=== PATIENT | female | born 1930 | race Caucasian/White ===

== ENCOUNTER 2016-11-12 19:06 | Inpatient (IN) | payer MEDICARE, BC ==
[~2016-11-12] VITALS: Ht 160 cm; Wt 90.7 kg
--- NOTE | ~2016-11-12 | EKG ---
PATIENT: PETERSON WELLS UNIT #: [id number] Ventricular Rate: 85 BPM Atrial Rate: 85 BPM P-R Interval: 144 ms QRS Duration: 100 ms Q-T Interval: 360 ms QTC Calculation(Bezet): 428 ms P Merrillan: 44 degrees Calculated R Merrillan: 44 degrees Calculated T Merrillan: 56 degrees Diagnosis Line: Normal sinus rhythm Diagnosis Line: Normal ECG Diagnosis Line: When compared with ECG of 15-OCT-2015 07:44, Diagnosis Line: Borderline criteria for Inferior infarct are no Diagnosis Line: longer Present Diagnosis Line: Nonspecific T wave abnormality no longer evident Diagnosis Line: in Inferior leads Diagnosis Line: Nonspecific T wave abnormality no longer evident Diagnosis Line: in Anterior leads Diagnosis Line: QT has shortened Diagnosis Line: Confirmed by DANNY SIMS MD ([id number]) on 11/13/2016 Diagnosis Line: 4:53:19 PM INTERPRETING MD: LEVI NATARAJAN
--- NOTE | ~2016-11-12 | CO ---
Unit #: [id number] #: [id number] Patient: PETERSON WELLS [id number] [address] [place], [place] [address] [id number] Hal MR#: [id number] NAME: PETERSON WELLS ROOM: 464 Age: 86 Sex: F Admission Date: 11/13/2016 : 1930 Attending Physician: Anisha Jacobs M.D. Primary Care Physician: John Bell M.D. Consultation Date: 11/13/2016 CONSULTATION REPORT PRIMARY CARE PHYSICIAN John Bell M.D. REASON FOR CONSULTATION Recurrent C diff colitis. HISTORY OF PRESENT ILLNESS Ms. Wells is an 86-year-old white female. I have not seen her for several months. In fact, she called my office few days ago and I spoke with her directly over the phone. She told me that she went to the [facility] and that she had lot of diarrhea and that she was sent home. Next day, she was called from [place] [facility] that she was found to have C diff colitis on the stool study and she was prescribed Flagyl. Apparently, the patient had rash with Flagyl and hives and ended up going to the emergency room again. She was then given a prescription for vancomycin, but because it was very expensive more than 1500 to 1600 dollars, she could not afford it and therefore, she continues to suffer. From our office, we called her, compounding vancomycin which would have cost it 150 to 200 dollars for 14 days. The patient however states she did not have any money even to buy that and thus ended up coming to the emergency room with profuse watery diarrhea and feeling unwell. She also has some abdominal cramps. She also was found to have a left lower lobe infiltrate in the emergency room during this hospitalization. PAST MEDICAL HISTORY Significant history of type 2 diabetes, hypertension, hyperlipidemia, hypothyroidism, anxiety and depression, B12 deficiency, chronic kidney disease, and valvular heart disease as well as C diff colitis. PAST SURGICAL HISTORY Included hysterectomy, cholecystectomy, bilateral hip surgeries, back surgery, cataract extraction, hemorrhoidectomy, right knee replacement. MEDICATIONS At home included aspirin, Xanax, Norvasc, ferrous sulfate, Florastor, Amaryl, Imdur, Lantus insulin, Synthroid, lovastatin, metoprolol, nortriptyline, omeprazole, Percocet, and Zofran. ALLERGIES She is allergic to codeine, Flagyl, morphine. FAMILY HISTORY None of colon, pancreatic cancer, or liver disease, but she says the mother's colon "ruptured." Unit #: [id number] #: [id number] Patient: PETERSON WELLS SOCIAL HISTORY Lives at home by herself. Never smoked. Does not drink alcohol. REVIEW OF SYSTEMS Detailed review of organ systems is significant for diarrhea and abdominal discomfort. There is no history of fever, chills, or rigors. No history of headache, seizures, chest pain, or syncope. No history of cough, expectoration, or hemoptysis. No history of dysuria, hematuria, or pyuria. No history of focal seizures or extremity weakness. Rest of the review of organ systems is unremarkable. PHYSICAL EXAMINATION GENERAL: She is awake, alert, oriented, and is already feeling better while in the hospital. VITAL SIGNS: Her temperature is 98.0, pulse is 84 per minute and regular, respirations 20, and blood pressure 135/55. She weighs 199 pounds, which is close to her baseline weight. HEENT: She has mild pallor. There being no icterus, lymphadenopathy, or peripheral edema. CARDIOVASCULAR: Normal heart sounds. No murmurs. LUNGS: Auscultation over the lungs reveals normal breath sounds. Good air entry. ABDOMEN: Soft and nontender. Liver and spleen not palpable. Bowel sounds normal. DIAGNOSTIC STUDIES LABORATORY RESULTS: Shows a completely unremarkable CBC. Serum chemistry shows a BUN and creatinine of 29 and 1.3. Blood glucose 240. Sodium is 131, potassium 4.9, and albumin is 3.3, and LFTs otherwise normal. Her C diff toxin here is pending. CLINICAL IMPRESSION The patient most likely has reactivation recurrent clostridium difficile colitis and in view of the fact that she is allergic to Flagyl, oral vancomycin is an ideal choice and is only option here. The patient will require to purchase medication in the compounding pharmacy, so as to avoid excessive cost. We will also do a limited flexible sigmoidoscopy to assess the severity of disease. The above plan discussed with the patient, she was reassured. Thank you very much for asking me to see this pleasant woman. I appreciate the consult. Dictated by... Franklyn Leal/ruddy TD: 11/14/2016 12:06 JOB #: [id number] CC: Franklyn Decker M.D. Unit #: [id number] #: [id number] Patient: PETERSON WELLS CONSULTATION REPORT Page 1 of 1 X Nando Perez MD CONSULTATION REPORT
--- NOTE | ~2016-11-12 | HP ---
Unit #: [id number] #: [id number] Patient: PETERSON WELLS [id number] [address] [address] [id number] I MR#: [id number] NAME: PETERSON WELLS ROOM: 464 Age: 86 Sex: F Admission Date: 11/13/2016 : 1930 Attending Physician: Analia Valdivia M.D. Primary Care Physician: John Bell M.D. HISTORY AND PHYSICAL CHIEF COMPLAINT Recurrent C. difficile colitis, allergic reaction secondary to Flagyl with hives. HISTORY This 86-year-old female with hypertension, valvular heart disease, AODM, is admitted for C. difficile colitis. The patient was admitted to this facility 05/12/2016 for C. difficile colitis. Afterwards, went to rehab. States that she was well since her discharge from rehab in June until last week. Last week she again developed diarrhea with abdominal discomfort. No fevers, sweats or chills. She was seen at [place] emergency department on 11/06/2016, cultures were taken. The patient was called that the cultures were positive for C. difficile. The patient is allergic to Flagyl, and, therefore, vancomycin was called in. Unfortunately, the vancomycin was too expensive to purchase. Therefore, the patient opted to take Flagyl with Benadryl. However, after three doses of Flagyl, she developed hives. Despite 100 mg of Benadryl, still had hives when she presented to this emergency department last evening. The hives were resolving. She was, however, given 125 mg of Solu-Medrol. Was also given Protonix and Zofran. On examination, she has periumbilical tenderness. Her urinalysis is negative. Chest x-ray shows a new left lower lobe infiltrate but patient denies cough or shortness of breath. She is afebrile with a normal white count. PAST MEDICAL HISTORY 1. C. difficile colitis. 2. Valvular heart disease with an ejection fraction of 50-55%, moderate severe MR, mild to moderate TR. 3. Essential hypertension. 4. Chronic kidney disease. 5. AODM. 6. Hyperlipidemia. 7. Chronic back pain and DJD. 8. Anxiety and depression. 9. B12 deficiency. 10. Hypothyroidism. 11. Diverticular disease. Colonoscopy in the past five years only revealed diverticular disease. 12. Hysterectomy. 13. Cholecystectomy. 14. Bilateral hip surgeries. Unit #: [id number] #: [id number] Patient: PETERSON WELLS 15. Back surgery. 16. Cataract extraction. 17. Hemorrhoidectomy. 18. Right knee replacement. 19. Laparoscopic ventral hernia repair 09/2015 for a partial small bowel obstruction. ALLERGIES Morphine, codeine and Flagyl. HOME MEDICATIONS 1. Aspirin 81 mg daily. 2. Xanax 0.25 mg t.i.d. 3. Norvasc 5 mg daily. 4. Iron sulfate 324 mg b.i.d. 5. Florastor 250 mg b.i.d. which I believe the patient completed. 6. Amaryl 8 mg q. a.m. 7. Imdur 30 mg daily. 8. Lantus 30 units subcu q. h.s. 9. Synthroid 0.1 mg daily. 10. Lovastatin 40 mg daily. 11. Metoprolol 50 mg b.i.d. 12. Nortriptyline 75 mg daily. 13. Omeprazole 40 mg daily. 14. P.r.n. Zofran. 15. Percocet 10 mg q.4 hours as needed. FAMILY HISTORY Mother's colon "ruptured." SOCIAL HISTORY The patient lives alone. She is a lifelong nonsmoker, she does not drink alcohol. REVIEW OF SYSTEMS Notable for diarrhea, abdominal discomfort, hypertension, valvular heart disease, AODM, hyperlipidemia, chronic back pain, hypothyroidism, B12 deficiency, above mentioned surgeries. All other systems were reviewed and otherwise negative. Also, hives. PHYSICAL EXAMINATION GENERAL: Pleasant 86-year-old female who currently is in no acute distress. VITAL SIGNS: Temperature 98.4, pulse 87, respirations 19, blood pressure 117/65. O2 saturation is 94% on room air. HEENT: Eyes PERRLA. Extraocular muscles are intact. Pharynx is benign. NECK: Supple without adenopathy or thyromegaly. CHEST: Clear. CARDIAC: Normal S1 and S2, I actually do not hear a murmur. ABDOMEN: Bowel sounds are present. Periumbilical tenderness noted without rebound, guarding. No hepatosplenomegaly or masses. EXTREMITIES: With minimal edema. NEUROLOGIC EXAM: The patient is awake, alert, oriented. Cranial nerves are intact. Equal strength throughout but generally weak on exam. DIAGNOSTIC STUDIES LABORATORY: Hematocrit is 38.2, normal white count and platelet count. Unit #: [id number] #: [id number] Patient: PETERSON WELLS-7 - glucose 154, BUN 29, creatinine 1.3. BNP is normal. Cardiac markers negative. Urinalysis - trace leukocyte esterase without significant white or red cells on catheterized specimen. IMAGING: Chest x-ray - new left lower lobe infiltrate. CARDIOVASCULAR: EKG - sinus rhythm, rate 85, normal appearing. ASSESSMENT 1. Recurrent C. difficile colitis seen at [facility] six days ago. Patient had an allergic reaction to Flagyl but is unable to afford p.o. vancomycin. 2. Allergic reaction to Flagyl. 3. Valvular heart disease with ejection fraction 50-55%. 4. Essential hypertension. 5. Chronic kidney disease and mild dehydration. 6. AODM. 7. Chronic back pain. 8. Anxiety and depression. 9. Hypothyroidism. 10. Left lung infiltrate but no shortness of breath or cough. PLANS 1. P.o. vancomycin. 2. Hives, resolved after Benadryl and one dose of Solu-Medrol. Will not continue Solu-Medrol at this point as patient is diabetic. 3. IV fluids. 4. Social work to see as patient is unable to afford vancomycin. 5. SCDs for DVT prophylaxis. 6. Clear liquid diet and adjust IV fluids and diabetic medications accordingly. Dictated by Franklyn Mccain/lesley TD: 11/13/2016 05:45 JOB #: [id number] HISTORY AND PHYSICAL Page 1 of 1 X Analia Valdivia MD X HISTORY AND PHYSICAL
--- NOTE | ~2016-11-12 | OR ---
Unit #: [id number] #: [id number] Patient: PETERSON WELLS [id number] [facility]. [place], [place] [address] [id number] I MR#: [id number] NAME: PETERSON WELLS ROOM: 464 Date of Procedure: 11/13/2016 Admission Date: 11/13/2016 Surgeon: Nando Perez M.D. : 1930 Attending Physician: Anisha Jacobs M.D. Primary Care Physician: John Bell M.D. OPERATIVE REPORT PRIMARY CARE PHYSICIAN John Bell M.D. PREOPERATIVE DIAGNOSIS Recurrent Clostridium difficile colitis. PROCEDURE PERFORMED Flexible sigmoidoscopy and biopsies. POSTOPERATIVE DIAGNOSES The patient had changes suggestive of resolving pseudomembranous colitis involving the sigmoid colon. In addition, scant diverticula were also seen in this area. RECOMMENDATIONS The patient is allergic to metronidazole; therefore, vancomycin is the only option. She was called oral vancomycin by our office when she called our office few days ago that she did have C. diff colitis. This was initially picked up at [facility], but she was never treated there. Unfortunately, she could not even afford the compounded pharmacy vancomycin which cost about 150 to 200 dollars and thus ended up coming to the emergency room. Unfortunately, there is little else that can be offered other than oral vancomycin. The cheapest way to obtain is by compounded pharmacy prescription. The patient needs to take this in a dose of 125 mg p.o. q.i.d. for 14 days. She can be discharged home from a GI standpoint. SEDATION USED MAC. DESCRIPTION OF PROCEDURE Following detailed explanation of potential risks and complications of a sigmoidoscopy, namely perforation, bleeding, and complications related to sedation, the patient was brought to GI lab and laid in the left lateral decubitus position. A digital rectal examination was performed, which was normal. Lubricated tip of the Olympus video colonoscope was inserted through the anus and advanced under direct vision. The scope was advanced past rectum into the sigmoid colon. Changes of pseudomembranous colitis were noted with lots of whitish exudates and secretions. The scope was advanced up to proximal sigmoid with continuous changes seen throughout. Appropriate biopsies were obtained and the scope was withdrawn. The patient returned to the recovery area. She also had few diverticula in Unit #: [id number] #: [id number] Patient: SHARP,PETERSON the sigmoid colon. She tolerated the procedure without any postprocedure complications. Dictated by..Franklyn Anton/ruddy TD: 11/13/2016 21:59 JOB #: [id number] CC: Franklyn Mccain M.D. OPERATIVE REPORT Page 1 of 1 X Nando Perez MD X PROCEDURE OPERATIVE NOTE
--- NOTE | ~2016-11-12 | DS ---
Unit #: [id number] #: [id number] Patient: PETERSON WELLS [id number] [address] [address] [id number] I MR#: [id number] NAME: PETERSON WELLS ROOM: 464 Age: 86 Sex: F Admission Date: 11/13/2016 : 1930 Discharge Date: 11/16/2016 Attending Physician: Shanell eBltran M.D. Primary Care Physician: John Bell M.D. DISCHARGE SUMMARY PRINCIPAL DIAGNOSES 1. Recurrent Clostridium difficile colitis. 2. Diabetes mellitus type 2, insulin requiring and uncontrolled. Last known hemoglobin A1c 9.5 n April 2016. 3. History of hypertension with borderline hypotension during hospitalization. 4. Hypothyroidism. 5. Moderate to severe mitral regurgitation. 6. Mild to moderate tricuspid regurgitation. 7. Chronic kidney disease stage 3, baseline creatinine of 1.2, discharge creatinine 1.2. 8. Hyperlipidemia. 9. Chronic back pain, maintained on narcotics. 10. Anxiety and depression. 11. Insomnia. 12. Hyperlipidemia. 13. History of iron deficiency anemia. 14. Gastroesophageal reflux disease. 15. Physical deconditioning. 16. Moderate protein malnutrition. 17. Obesity. CONSULTANTS Dr. Perez - Gastroenterology. PROCEDURES 1. Flexible sigmoidoscopy on November 13, 2016, with changes of pseudomembranous colitis with whitish exudate and secretions noted. This appeared to be resolving. 2. Chest x-ray on November 12, 2016, with interstitial infiltrate in the left lower lung. CLINICAL HISTORY/HOSPITAL COURSE Ms. Wells is an 86-year-old female with a history of C. diff colitis in April 2016 who presents back to the emergency department with diffuse diarrhea. Patient was actually placed on Flagyl as an outpatient but developed hives due to Flagyl. She was given a prescription for vancomycin which was ultimately too expensive and subsequently she presented to the emergency department. Upon presentation, vital signs were all stable. Patient was subsequently admitted for C. diff colitis. Dr. Perez was consulted and patient underwent flexible sigmoidoscopy with changes of pseudomembranous colitis. Patient was placed on oral Unit #: [id number] #: [id number] Patient: PETERSON WELLS vancomycin and her bowel movements have improved as have her abdominal pain. She is significantly weak and will be discharged to rehab later today. DISCHARGE CONDITION Stable. DISCHARGE STATUS Discharge to rehab. DISCHARGE MEDICATIONS 1. Vancomycin 125 mg p.o. q.6 hours to stop after dose is given on November 29, 2016. 2. Nortriptyline 75 mg at bedtime. 3. Metformin 500 mg p.o. daily. 4. Xanax 0.25 mg p.o. t.i.d. 5. Toprol XL 50 mg b.i.d. 6. Norvasc 5 mg p.o. daily is currently being held. 7. Mevacor 40 mg daily. 8. Lantus 10 units at bedtime subcutaneous. 9. NovoLog sliding scale with meals, medium dose. 10. Ferrous gluconate 324 mg b.i.d. 11. Florastor 250 mg b.i.d. to stop after dose on December 13, 2016. 12. Aspirin 81 mg daily. 13. Oxycodone 10 mg p.o. q.4 hours p.r.n. for pain. 14. I am going to discontinue Omeprazole 20 mg p.o. daily given it is a risk factor for C. diff. She can be placed on ranitidine if she has recurrent symptoms. 15. Amaryl 8 mg before breakfast. 16. Levothyroxine 75 mcg p.o. daily. 17. Imdur ER 30 mg daily. DISCHARGE INSTRUCTIONS Patient was instructed to follow a constant carb heart healthy diet. She will continue Accu-Cheks a.c. and h.s. She can increase her activity as tolerated. FOLLOWUP Patient will follow up with Dr. Bell upon discharge from rehab. Again, I am discontinuing PPI therapy given it is a risk factor for C. diff. I am also holding her Norvasc due to blood pressure in the 90s off of the medication. She can be reinitiated on ranitidine if she has recurrent GERD symptoms and Norvasc can be reinitiated if blood pressure increases. Time spent on discharge today - 34 minutes. Dictated by... Shanell Beltran M.D. Anna TD: 11/16/2016 12:23 JOB #: [id number] Unit #: [id number] #: [id number] Patient: PETERSON WLELS DISCHARGE SUMMARY Page 1 of 1 X Shanell Beltran MD X DISCHARGE SUMMARY
--- NOTE | ~2016-11-12 | CR71 ---
[facility] A Service of [facility] RADIOLOGY TEXT RESULTS PATIENT: PETERSON WELLS LOCATION: [facility] 464-01 : [birth year] UNIT #: [id number] AGE: [address]: Anisha Jacobs MD SEX: F ORDER DR: [id number] [facility] [address] [place], [place] [address] [id number] I MR#: [id number] Acc #: [id number] NAME: PETERSON WELLS : 1930 SEX: F STUDY DATE/TIME: 11/12/2016 20:22 UNIT: [facility] ROOM: 4 STUDY DESCRIPTION: CR Chest Single View Attending Physician: Anisha Jacobs M.D. Ordering Physician: Doris Trammell M.D. Primary Care Physician: John Bell M.D. MEDICAL IMAGING REPORT This report is preliminary unless electronic signature is present EXAM Portable chest. HISTORY Shortness of air. Chest pain today. FINDINGS Mild interstitial infiltrate left lower lung could be secondary to scarring or edema. This has developed or increased compared to 07/07/2016. Additional mild interstitial prominence in the right lung is essentially stable. No airspace consolidation. Cardiac size and pulmonary vascularity are within normal limits. IMPRESSION 1. Mild interstitial infiltrate left lower lung is new compared to 07/07/2016. This could be secondary interstitial edema or pneumonia or progressive interstitial fibrotic scarring. 2. No focal airspace infiltrates in the remainder of the lungs. Dictated by... Terry Jacques M.D. THIS IS AN ELECTRONICALLY VERIFIED REPORT Terry Jacques M.D. at 11/13/2016 4:10 PM DFL/gz TD: 11/13/2016 08:37 JOB #: [id number] MEDICAL IMAGING REPORT Page 1 of 1 COPY
[~2016-11-12 19:06] MED LIST: ACETAMINOPHEN PO; ACTONEL; ALPRAZOLAM; ALPRAZOLAM0.25 MG PO; ALTOPREV; AMARYL PO; AMBIEN PO; AMITRIPTYLINE H75 MG PO; AMLODIPINE BESYL5 MG PO; AMOXICILLIN875 MG PO; ANUCORT-HC25 MG/SUPP PR; APA PO; ASPIRIN; ASPIRIN EC81 M1 PO; ASPIRIN81 M2 PO; AUGMENTIN PO; AZITHROMYCIN250 MG PO; BENAZEPRIL-HCTZ1 T14 PO; CELEXA20 MG PO; CEPHALEXIN500 M1 PO; CLARITIN10 M2 PO; CRESTOR; DURAGESIC; DURAGESIC100 MCG EXT; EFFEXOR XR; FERROUS GL324 ( 36 ) PO; FERROUS GLUCON324 MG PO; HYDROCHLOROTHIA25 MG PO; HYDROCODON-ACE1 EAC2 PO; HYDROCODONE PO; HYDROCODONE-APA1 T30; HYDROCODONE-APA1 T33; IBUPROFEN; IMDUR; IMDUR PO; IMDUR-ER30 M1 PO; ISOSORBIDE DINI30 MG PO; ISOSORBIDE MONO30 M1 PO; LANTUS SOLOSTAR3 ML SUBQ; LANTUS100 U/ML SUBQ; LASIX20 MG PO; LEVOTHYROXINE88 MCG PO; LOPRESSOR PO; LOTENSIN HCT 101 TA1 PO; MEDROL DOSEPAK4 MG PO; METFORMIN HCL500 M1 PO; METFORMIN HCL500 M2 PO; METOPROLOL TAR25 MG PO; MEVACOR PO; MEVACOR10 MG PO; MEVACOR40 MG PO; MIRALAX17 GM PO; NORTRIPTYLINE H10 MG PO; NORTRIPTYLINE H75 MG PO; NOVOLOG100 U/ML SUBQ; OMEPRAZOLE20 M2 PO; OXYCODONE HCL15 MG PO; OXYCODONE15 M1 PO; PAMELOR PO; PRILOSEC PO; SULAR; SYNTHROID; SYNTHROID75 MCG PO; TOPROL XL50 MG PO; TRAZODONE
[2016-11-12 21:41] LABS: BASOPHIL% 0.4 % (0-2.5); EOSINOPHIL# 0.3 X10e3 (0-0.7); EOSINOPHIL% 3.4 % (0.0-7.0); HEMATOCRIT 38.2 % (35.0-45.0); HEMOGLOBIN 12.5 gm/dL (12.0-16.0); LYMPHOCYTE# 2.1 X10e3 (1.0-3.5); LYMPHOCYTE% 20.7 % (17.0-45.0); MEAN CELL VOLUME 89.5 FL (83-96); MEAN CORPUSCULAR HEMOGLOBIN 29.3 PG (28-34); MEAN CORPUSCULAR HGB CONC 32.8 g/dL (30-36); MEAN PLATELET VOLUME 8.2 FL (6.5-11.5); MONOCYTE# 0.9 X10e3 (0-1.0); MONOCYTE% 8.7 % (3.0-12.0); NEUTROPHIL# 6.6 X10e3 (1.5-7.1); NEUTROPHIL% 66.8 % (40-75); PLATELET COUNT 267 X10e3 (140-420); RED BLOOD COUNT 4.26 X10e (3.90-5.30); RED CELL DISTRIBUTION WIDTH 14.5 % (11.0-15.5); WHITE BLOOD COUNT 9.9 X10e3 (4.0-10.5)
[2016-11-12 21:43] LABS: POC - CKMB 1.6 ng/mL (0.0-7.9); POC - TROPONIN <0.05 ng/mL (<=0.05)
[2016-11-12 21:43] LABS: BUN/CREATININE RATIO 22.3; CREATININE SERUM 1.3 mg/dL (0.6-1.4); GLOM FILT RATE Estimated 37.4 mL/min (>60)
[2016-11-12 21:44] LABS: DIFF IND NO
[2016-11-12 21:51] LABS: CALCIUM SERUM 8.9 mg/dL (8.4-10.2); POTASSIUM 4.5 mmol/L (3.5-5.1)
[2016-11-12 22:34] LABS: URINE SOURCE CLEAN CATCH
[2016-11-12 22:37] LABS: URINE APPEARANCE CLEAR; URINE BILIRUBIN NEG (NEG); URINE BLOOD NEG (NEG); URINE COLOR YELLOW; URINE GLUCOSE NEG (NEG); URINE KETONE NEG (NEG); URINE LEUKOCYTE ESTERASE TRACE (NEG); URINE NITRATE NEG (NEG); URINE PROTEIN NEG (NEG); URINE SPECIFIC GRAVITY 1.014 (1.003-1.035); URINE UROBILINOGEN 0.2 MG/DL (NEG)
[2016-11-12 22:39] LABS: U HYALINE CASTS AUWI 0-2 /[LPF]; URBCS1 AUWI 0-2 /[HPF] (0-2); URINE BACTERIA AUWI NEG (NEGATIVE); URINE SQUAMOUS EPITHELIAL CELL NONE SEEN /[HPF]; UWBCS1 AUWI 0-2 (0-5)
[2016-11-12 22:42] LABS: CULTURE INDICATED? NO
[2016-11-13 08:49] LABS: BASOPHIL% 0.2 % (0-2.5); EOSINOPHIL% 0.1 % (0.0-7.0); HEMOGLOBIN 13.7 gm/dL (12.0-16.0); LYMPHOCYTE# 0.7 X10e3 (1.0-3.5); LYMPHOCYTE% 7.4 % (17.0-45.0); MEAN CELL VOLUME 90.3 FL (83-96); MEAN CORPUSCULAR HEMOGLOBIN 30.2 PG (28-34); MEAN CORPUSCULAR HGB CONC 33.4 g/dL (30-36); MEAN PLATELET VOLUME 7.6 FL (6.5-11.5); MONOCYTE# 0.1 X10e3 (0-1.0); MONOCYTE% 0.9 % (3.0-12.0); NEUTROPHIL# 9.2 X10e3 (1.5-7.1); NEUTROPHIL% 91.4 % (40-75); PLATELET COUNT 280 X10e3 (140-420); RED BLOOD COUNT 4.54 X10e (3.90-5.30); RED CELL DISTRIBUTION WIDTH 14.4 % (11.0-15.5); WHITE BLOOD COUNT 10.1 X10e3 (4.0-10.5)
[2016-11-13 08:50] LABS: DIFF IND NO
[2016-11-13 09:14] LABS: ALBUMIN SERUM 3.3 g/dL (3.5-5.0); BILIRUBIN,TOTAL 0.4 mg/dL (0.2-2.0); BUN/CREATININE RATIO 25.45; CALCIUM SERUM 9.1 mg/dL (8.4-10.2); CREATININE SERUM 1.1 mg/dL (0.6-1.4); GLOM FILT RATE Estimated 45.8 mL/min (>60); POTASSIUM 4.9 mmol/L (3.5-5.1); PROTEIN TOTAL SERUM 8.3 g/dL (6.0-8.3)
[2016-11-14 03:47] LABS: HEMATOCRIT 36.8 % (35.0-45.0); LYMPHOCYTE# 1.2 X10e3 (1.0-3.5); LYMPHOCYTE% 9.1 % (17.0-45.0); MEAN CELL VOLUME 88.9 FL (83-96); MEAN CORPUSCULAR HGB CONC 32.7 g/dL (30-36); MEAN PLATELET VOLUME 8.3 FL (6.5-11.5); MONOCYTE# 0.8 X10e3 (0-1.0); MONOCYTE% 6.3 % (3.0-12.0); NEUTROPHIL# 11.2 X10e3 (1.5-7.1); NEUTROPHIL% 84.6 % (40-75); PLATELET COUNT 296 X10e3 (140-420); RED BLOOD COUNT 4.13 X10e (3.90-5.30); RED CELL DISTRIBUTION WIDTH 14.2 % (11.0-15.5); WHITE BLOOD COUNT 13.3 X10e3 (4.0-10.5)
[2016-11-14 03:53] LABS: DIFF IND NO
[2016-11-14 04:23] LABS: ALBUMIN SERUM 2.8 g/dL (3.5-5.0); BILIRUBIN,TOTAL 0.2 mg/dL (0.2-2.0); BUN/CREATININE RATIO 23.33; CALCIUM SERUM 8.6 mg/dL (8.4-10.2); CREATININE SERUM 1.2 mg/dL (0.6-1.4); GLOM FILT RATE Estimated 41.2 mL/min (>60); PHOSPHOROUS 3.7 mg/dL (2.5-4.6); POTASSIUM 4.8 mmol/L (3.5-5.1); PROTEIN TOTAL SERUM 6.5 g/dL (6.0-8.3)
[2016-11-15 03:21] LABS: BASOPHIL# 0.1 X10e3 (0-0.3); BASOPHIL% 0.4 % (0-2.5); EOSINOPHIL# 0.2 X10e3 (0-0.7); EOSINOPHIL% 1.8 % (0.0-7.0); HEMATOCRIT 37.3 % (35.0-45.0); HEMOGLOBIN 12.2 gm/dL (12.0-16.0); LYMPHOCYTE# 2.9 X10e3 (1.0-3.5); LYMPHOCYTE% 21.1 % (17.0-45.0); MEAN CELL VOLUME 89.3 FL (83-96); MEAN CORPUSCULAR HEMOGLOBIN 29.3 PG (28-34); MEAN CORPUSCULAR HGB CONC 32.8 g/dL (30-36); MONOCYTE# 1.3 X10e3 (0-1.0); MONOCYTE% 9.3 % (3.0-12.0); NEUTROPHIL# 9.2 X10e3 (1.5-7.1); NEUTROPHIL% 67.4 % (40-75); PLATELET COUNT 290 X10e3 (140-420); RED BLOOD COUNT 4.18 X10e (3.90-5.30); WHITE BLOOD COUNT 13.6 X10e3 (4.0-10.5)
[2016-11-15 03:23] LABS: DIFF IND NO
[2016-11-15 03:46] LABS: BUN/CREATININE RATIO 29.09; CALCIUM SERUM 8.6 mg/dL (8.4-10.2); CREATININE SERUM 1.1 mg/dL (0.6-1.4); GLOM FILT RATE Estimated 45.8 mL/min (>60); POTASSIUM 4.5 mmol/L (3.5-5.1)
[2016-11-16 03:32] LABS: BASOPHIL% 0.3 % (0-2.5); DIFF IND NO; EOSINOPHIL# 0.4 X10e3 (0-0.7); EOSINOPHIL% 4.9 % (0.0-7.0); HEMATOCRIT 36.3 % (35.0-45.0); LYMPHOCYTE# 2.4 X10e3 (1.0-3.5); LYMPHOCYTE% 26.5 % (17.0-45.0); MEAN CELL VOLUME 89.7 FL (83-96); MEAN CORPUSCULAR HEMOGLOBIN 29.8 PG (28-34); MEAN CORPUSCULAR HGB CONC 33.2 g/dL (30-36); MONOCYTE# 0.8 X10e3 (0-1.0); MONOCYTE% 8.9 % (3.0-12.0); NEUTROPHIL# 5.5 X10e3 (1.5-7.1); NEUTROPHIL% 59.4 % (40-75); PLATELET COUNT 234 X10e3 (140-420); RED BLOOD COUNT 4.04 X10e (3.90-5.30); RED CELL DISTRIBUTION WIDTH 14.5 % (11.0-15.5); WHITE BLOOD COUNT 9.2 X10e3 (4.0-10.5)
[2016-11-16 04:18] LABS: BUN/CREATININE RATIO 23.33; CALCIUM SERUM 8.4 mg/dL (8.4-10.2); CREATININE SERUM 1.2 mg/dL (0.6-1.4); GLOM FILT RATE Estimated 41.2 mL/min (>60); POTASSIUM 4.5 mmol/L (3.5-5.1)
== END 2016-11-16 15:52 | DRG 373 ==
LOC: CED 19:06 → CEDOF 11-13 00:45 → CED 11-13 00:51 → CEDOF 11-13 00:51 → C4C 11-13 02:52 → CEDOF 11-13 02:52 → C4C 11-13 07:45
PROVIDERS: Emergency Medicine; Internal Medicine; Internal Medicine Gastroenterology
PROC: 0DBN8ZX Excision of Sigmoid Colon, Via Natural or Artificial Opening Endoscopic, Diagnostic (ICD-10-PCS; principal; 2016-11-13 19:03)
DX: A04.7 Enterocolitis due to Clostridium difficile (principal); E11.22 Type 2 diabetes mellitus with diabetic chronic kidney disease; E86.0 Dehydration; I08.1 Rheumatic disorders of both mitral and tricuspid valves; I12.9 Hypertensive chronic kidney disease with stage 1 through stage 4 chronic kidney disease, or unspecified chronic kidney disease; N18.9 Chronic kidney disease, unspecified; E78.5 Hyperlipidemia, unspecified; F41.9 Anxiety disorder, unspecified; F32.9 Major depressive disorder, single episode, unspecified; E03.9 Hypothyroidism, unspecified; E53.8 Deficiency of other specified B group vitamins; Z90.49 Acquired absence of other specified parts of digestive tract; Z98.49 Cataract extraction status, unspecified eye; Z96.651 Presence of right artificial knee joint; Z79.82 Long term (current) use of aspirin; Z79.4 Long term (current) use of insulin; Z88.8 Allergy status to other drugs, medicaments and biological substances; K57.90 Diverticulosis of intestine, part unspecified, without perforation or abscess without bleeding
CPT/HCPCS: 36415; 71010; 80048; 80053; 81003; 82553; 82947; 83735; 83880; 84100; 84484; 85025; 87045; 87427; 87493; 87899; 88305; 93005; 96374; 96375; 97110; 97162; 97166; 97530; 97535; 99285; C9113; G8978-GP; G8979-GP; G8987-GO; G8988-GO; G8989-GO; J1815; J2405; J2930

== ENCOUNTER 2016-12-10 18:01 | Emergency (ER) | payer MEDICARE, BC ==
[~2016-12-10] VITALS: Ht 162.6 cm; Wt 90.7 kg
--- NOTE | ~2016-12-10 | CR170 ---
[facility] A Service of [facility] & [facility] RADIOLOGY TEXT RESULTS PATIENT: PETERSON WELLS LOCATION: [facility] : 31 UNIT #: [id number] AGE: [address]: Hernando Ta MD SEX: F ORDER DR: [id number] [facility] [address] [place], [place] [address] [id number] MR#: [id number] Acc #: [id number] NAME: PETERSON WELLS : 1930 SEX: F STUDY DATE/TIME: 12/10/2016 22:02 UNIT: [facility] ROOM: STUDY DESCRIPTION: CR Knee 2 Views Rt Attending Physician: Hernando Ta M.D. Ordering Physician: Hernando Ta M.D. Primary Care Physician: John Bell M.D. MEDICAL IMAGING REPORT This report is preliminary unless electronic signature is present EXAM Right knee 2 views HISTORY Anterior knee pain for 4 days. No injury. FINDINGS 2 views of the right knee demonstrate total knee arthroplasty with components in satisfactory position. No acute finding. No fracture or effusion. Generalized demineralization. [id number] arterial calcifications. Dictated by... Terry Jacques M.D. THIS IS AN ELECTRONICALLY VERIFIED REPORT Terry Jacques M.D. at 12/11/2016 2:21 PM AMEE/rashi TD: 12/11/2016 09:02 JOB #: [id number] MEDICAL IMAGING REPORT Page 1 of 1 COPY
== END 2016-12-10 22:48 | disposition home or self-care (01) ==
LOC: CED 18:01
DX: S83.91XA Sprain of unspecified site of right knee, initial encounter (principal); E10.22 Type 1 diabetes mellitus with diabetic chronic kidney disease; N18.9 Chronic kidney disease, unspecified; Z87.440 Personal history of urinary (tract) infections; Z79.899 Other long term (current) drug therapy; Z88.5 Allergy status to narcotic agent; Z88.1 Allergy status to other antibiotic agents; X58.XXXA Exposure to other specified factors, initial encounter
CPT/HCPCS: 73560; 82947; 99284